=== PATIENT | male | born 1990 | race Caucasian/White ===

== ENCOUNTER 2024-12-21 20:59 | Emergency (ER) | payer MEDICAID ==
[~2024-12-21] VITALS: Ht 180.3 cm; Wt 108.9 kg
[2024-12-21] MEDS ORDERED: IBUPROFEN 600 MG TABLET ONE (23:06)
[2024-12-21] MEDS ORDERED: HYDROCODONE/APAP 5/325MG TABLET ONE (23:06)
[2024-12-21] MEDS: IBUPROFEN 400 MG TABLET PO ONE (23:07)
[2024-12-21] MEDS: HYDROCODONE/APAP 5/325MG TABLET PO ONE (23:07)
[2024-12-22] MEDS ORDERED: IBUP-1490 PO (01:07)
[2024-12-22 01:36] VITALS: BP 158/94; TEMP 98.5; O2SAT 98
== END 2024-12-22 01:37 | disposition home or self-care (01) ==
LOC: ER 21:03
DX: S39.011A Strain of muscle, fascia and tendon of abdomen, initial encounter (principal); S86.812A Strain of other muscle(s) and tendon(s) at lower leg level, left leg, initial encounter; S86.911A Strain of unspecified muscle(s) and tendon(s) at lower leg level, right leg, initial encounter; Z60.2 Problems related to living alone; W01.0XXA Fall on same level from slipping, tripping and stumbling without subsequent striking against object, initial encounter; Y93.89 Activity, other specified; Y92.89 Other specified places as the place of occurrence of the external cause; Y99.8 Other external cause status
CPT/HCPCS: 73564-TC